=== PATIENT | female | born 1980 | race Caucasian/White ===

== ENCOUNTER → 2017-12-26 11:56 | Outpatient (CLI) | payer OTHER, SELFPAY ==
--- NOTE | 2017-12-26 12:03 | DI.RAD.S_ITS ---
PROCEDURE: XR HAND RT MIN 3V INDICATIONS: 37 year-old female with right hand pain, numbness and tingling. TECHNIQUE: 3 views of the hand(s) acquired. COMPARISON: None. FINDINGS: Bones: No fractures or dislocations. Carpal bones are normally aligned. No suspicious bony lesions. Soft tissues: No suspicious soft tissue calcifications. IMPRESSION: No imaging explanation for right hand pain. Dictated by: Chuck Serra M.D. on 12/26/2017 at 12:48 Approved by: Chuck Serra M.D. on 12/26/2017 at 12:49
--- NOTE | 2017-12-26 12:04 | DI.RAD.S_ITS ---
PROCEDURE: XR WRIST RT MIN 3V INDICATIONS: 37 year-old female with right wrist pain, numbness and tingling. TECHNIQUE: 4 views of the wrist were acquired. COMPARISON: None. FINDINGS: Bones: No fractures or dislocations. No joint degeneration. No suspicious bony lesions. Scaphoid view: Scaphoid appears intact. Soft tissues: No suspicious soft tissue calcifications. IMPRESSION: No radiographic explanation for right wrist pain. Dictated by: Chuck Serra M.D. on 12/26/2017 at 12:46 Approved by: Cuhck Serra M.D. on 12/26/2017 at 12:48
== END ==
PROVIDERS: PCP Nurse Practitioner Family; Visit Provider Nurse Practitioner Family
DX: M79.641 Pain in right hand (principal); M25.531 Pain in right wrist; R20.2 Paresthesia of skin
CPT/HCPCS: 73110; 73130

== ENCOUNTER → 2018-02-02 10:48 | Outpatient (CLI) | payer OTHER, SELFPAY | PROVIDERS: Family Provider Nurse Practitioner Family; PCP Nurse Practitioner Family; Visit Provider Nurse Practitioner Family | DX: R20.2 Paresthesia of skin (principal); M79.641 Pain in right hand | CPT/HCPCS: 95886; 95910 ==

== ENCOUNTER → 2018-09-26 11:39 | Outpatient (CLI) | payer OTHER, SELFPAY ==
[2018-09-26 11:45] LABS: RBC Urine None Seen (0-5/HPF)
[2018-09-26 12:45] LABS: Appearance Urine UA SL CLOUDY; Bilirubin Urine UA NEGATIVE (NEGATIVE); Glucose Urine UA TRACE g/dL (Negative); Ketones Urine UA NEGATIVE (NEGATIVE); Leukocyte Esterase Urine UA NEGATIVE (NEGATIVE); Nitrite Urine UA POSITIVE (Negative); Occult Blood Urine UA NEGATIVE (Negative); Protein Urine UA 1+ (Negative); pH Urine UA 7.5 (4.5-8.0)
[2018-09-26 12:46] LABS: Color Urine UA Dark Yellow
[2018-09-26 13:23] LABS: Amorphous Sediment Urine 1+; Bacteria Urine Few (2-10); Mucus Urine 2+ (Negative); Squamous Epithelial Cell Urine 5-10 /HPF; WBC Urine 1-5/HPF (0-5/HPF)
[2018-09-26 13:24] LABS: Culture Indicated Urine Cult Not Indicated
== END ==
PROVIDERS: Family Provider Nurse Practitioner Family; PCP Nurse Practitioner Family
DX: R30.0 Dysuria (principal)
CPT/HCPCS: 81001; 87086